=== PATIENT | female | born 1960 | race Caucasian/White ===

== ENCOUNTER 2017-08-18 01:11 | Emergency (ER) | payer OTHER ==
[~2017-08-18] VITALS: Ht 149.9 cm; Wt 131.0 kg
[2017-08-18 01:18] VITALS: TEMP 37; Ht 149.9 cm; Wt 131.0 kg
[2017-08-18] MEDS ORDERED: PRLSR20 PO (01:23)
[2017-08-18] MEDS ORDERED: OXYM0.0592 (01:25)
[2017-08-18] MEDS ORDERED: CETI10TA84 PO (01:25)
[2017-08-18] MEDS ORDERED: ASPI81TA28 PO (01:26)
[2017-08-18] MEDS ORDERED: CHOL1000 PO (01:26)
[2017-08-18] MEDS ORDERED: SERT-234 PO (01:27)
[2017-08-18] MEDS ORDERED: MoRPHine SULFATE 10 MG/ML CARP/VIAL IV STA (01:34)
[2017-08-18 01:51] LABS: BASO % 0.2 %; BASO ABS # 0.02 K/uL (0-0.2); EOS % 2.4 %; EOS ABS # 0.23 K/uL (0-0.5); HEMATOCRIT 42.7 % (37-47); HEMOGLOBIN 14.1 g/dL (12.0-16.0); IG# 0.01 K/uL (0.00-0.02); LYMPH % 33.1 %; LYMPH ABS # 3.23 K/uL (1.2-3.4); MEAN CELL VOLUME 88.2 fL (80-100); MEAN CORPUSCULAR HEMOGLOBIN 29.1 pg (25-34); MEAN PLATELET VOLUME 9.2 fL (7.4-10.4); MONO % 4.8 %; MONO ABS # 0.47 K/uL (0.11-0.59); NEUT % 59.4 %; NEUT ABS # 5.81 K/uL (1.4-6.5); PLATELET COUNT 326 K/uL (130-400); RED CELL DISTRIBUTION WIDTH CV 13.7 % (11.5-14.5); RED CELL DISTRIBUTION WIDTH SD 44.3 fL (36.4-46.3); WHITE BLOOD COUNT 9.77 K/uL (4.8-10.8)
[2017-08-18 01:58] LABS: ALBUMIN 3.4 gm/dl (3.4-5.0); ALT/SGPT 17 U/L (12-78); AST/SGOT 11 U/L (15-37); BLOOD UREA NITROGEN 16 mg/dl (7-18); CALCIUM 9.1 mg/dl (8.5-10.1); CARBON DIOXIDE 30 mmol/L (21-32); CREATININE 0.74 mg/dl (0.60-1.20); GLUCOSE 144 mg/dl (70-99); LIPASE 100 U/L (73-393); POTASSIUM 3.8 mmol/L (3.5-5.1); SODIUM 141 mmol/L (136-145)
[2017-08-18 02:03] LABS: ALKALINE PHOSPHATASE 115 U/L (45-117); TOTAL PROTEIN 7.2 gm/dl (6.4-8.2)
--- NOTE | 2017-08-18 02:52 | EMERGENCY ROOM VISIT NOTE ---
History First contact with patient: :20 Chief Complaint: ABDOMINAL PAIN Stated Complaint: ABD PAIN Nursing Triage Summary: patient c/o sudden onset RLQ pain tonight after coughing while out to eat at dinner. patient states pain worsens with movement. patient states she feels bloated . hx of celiac disease. given 4mg zofran and 5mg morphine IM by EMS prior to arrival. History of Present Illness The patient is a 57 year old female who presents to the Emergency Room with complaints of right-sided abdominal pain. The patient reports that she ate gluten-free pizza for dinner, and while she was at the restaurant she coughed and developed sudden onset of right-sided abdominal pain. She reports that she is more bloated than usual. She has had severe pain in the right upper abdomen with radiation into the back. The pain is worse with coughing. She has difficulty walking and standing due to the pain. She was able to fall asleep for a few hours, but states that she woke up with more severe pain. She reports there was associated nausea and presyncopal symptoms. She states her pain was initially 10/10, but it has now improved to an 8-9/10 after receiving morphine en route. She reports history of hysterectomy and breast reduction surgery. She has had no associated urinary symptoms, changes in bowel movements or vomiting. She denies chest pain or shortness of breath. Review of Systems A complete 10 point review of systems was reviewed with the patient with pertinent positives and negatives as per history of present illness. All else were negative. Past Medical/Surgical History Medical Problems: (1) Celiac disease (2) Pre-diabetes Surgical Problems: (1) H/O bilateral breast reduction surgery (2) History of hysterectomy Social History Smoking Status: Never Smoker Occupation Status: employed Current/Historical Medications Scheduled Aspirin (Aspirin Ec), 81 MG PO DAILY Cetirizine (Zyrtec), 10 MG PO DAILY Cholecalciferol (Vitamin D3), Unknown Dose PO DAILY Omeprazole (Prilosec), 20 MG PO DAILY Oxymetazoline Hcl (Nasal [place]), 1 SPRAY NA DAILY Sertraline (Zoloft), 100 MG PO DAILY Scheduled PRN Hydrocodone W/ Homatropine (Hycodan 5/1.5MG 5 Ml), 5-10 ML PO Q4H PRN for Cough Physical Exam Vital Signs Date Time Temp Pulse Resp B/P (MAP) Pulse Ox O2 Delivery O2 Flow Rate FiO2 08/18/17 06:46 92 20 124/78 98 08/18/17 04:53 66 18 126/72 96 Room Air 08/18/17 02:59 70 20 119/85 91 Room Air 08/18/17 01:18 37.0 71 18 150/91 97 Room Air Physical Exam VITALS: Vitals are noted on the nurse's note and reviewed by myself. Vital signs stable. GENERAL: This is a 57-year-old female, in no acute distress, nondiaphoretic, well-developed well-nourished. SKIN: The skin was without rashes. HEAD: Normocephalic atraumatic. EARS: External auditory canals clear, tympanic membranes pearly marcus without erythema or effusion bilaterally. EYES: Pupils equal round and reactive to light and accommodation. MOUTH: Mucous membranes moist. Tonsils are not enlarged. Pharynx without erythema or exudate. NECK: Supple without nuchal rigidity. No lymphadenopathy. HEART: Regular rate and rhythm without murmurs gallops or rubs. LUNGS: Clear to auscultation bilaterally without wheezes, rales or rhonchi. No retractions or accessory muscle use. ABDOMEN: Positive bowel sounds x 4. Soft, obese abdomen with tenderness in the right flank/right upper quadrant. No guarding or rebound tenderness. NEURO: Patient was alert and oriented to person place and time. Medical Decision & Procedures ER Provider Diagnostic Interpretation: CT ABDOMEN & PELVIS WITHOUT CONTRAST: Noncontrast study. No renal calculi. No hydronephrosis. No free fluid. Bowel is normal in caliber. The appendix is normal in appearance. Diverticulosis without evidence of diverticulitis. Solid organs are otherwise unremarkable on a non-infused exam. Small umbilical hernia containing fat. Absent uterus. US RUQ: Correlated with the earlier CT exam. Technically limited study due to body habitus. No gallstones. No wall thickening or pericholecystic fluid. Normal caliber common duct. Hepatomegaly with fatty infiltration. 2.21.21.8 cm focal echogenicity in the constance hepatis may represent state of increased fat deposition. Differential consideration is small hemangioma. Remainder unremarkable. Radiologist: Edilma Ramírez MD CHEST W/ RIGHT RIB DETAIL: No rib fractures. No acute cardiopulmonary disease. Laboratory Results 08/18/17 01:20 Red Blood Count 4.84, Mean Corpuscular Volume 88.2, Mean Corpuscular Hemoglobin 29.1, Mean Corpuscular Hemoglobin Concent 33.0, Mean Platelet Volume 9.2, Neutrophils (%) (Auto) 59.4, Lymphocytes (%) (Auto) 33.1, Monocytes (%) (Auto) 4.8, Eosinophils (%) (Auto) 2.4, Basophils (%) (Auto) 0.2, Neutrophils # (Auto) 5.81, Lymphocytes # (Auto) 3.23, Monocytes # (Auto) 0.47, Eosinophils # (Auto) 0.23, Basophils # (Auto) 0.02 08/18/17 01:20 Test 08/18/17 01:20 08/18/17 02:40 08/18/17 05:53 White Blood Count 9.77 K/uL (4.8-10.8) Red Blood Count 4.84 M/uL (4.2-5.4) Hemoglobin 14.1 g/dL (12.0-16.0) Hematocrit 42.7 % (37-47) Mean Corpuscular Volume 88.2 fL (80-100) Mean Corpuscular Hemoglobin 29.1 pg (25-34) Mean Corpuscular Hemoglobin Concent 33.0 g/dl (32-36) Platelet Count 326 K/uL (130-400) Mean Platelet Volume 9.2 fL (7.4-10.4) Neutrophils (%) (Auto) 59.4 % Lymphocytes (%) (Auto) 33.1 % Monocytes (%) (Auto) 4.8 % Eosinophils (%) (Auto) 2.4 % Basophils (%) (Auto) 0.2 % Neutrophils # (Auto) 5.81 K/uL (1.4-6.5) Lymphocytes # (Auto) 3.23 K/uL (1.2-3.4) Monocytes # (Auto) 0.47 K/uL (0.11-0.59) Eosinophils # (Auto) 0.23 K/uL (0-0.5) Basophils # (Auto) 0.02 K/uL (0-0.2) RDW Standard Deviation 44.3 fL (36.4-46.3) RDW Coefficient of Variation 13.7 % (11.5-14.5) Immature Granulocyte % (Auto) 0.1 % Immature Granulocyte # (Auto) 0.01 K/uL (0.00-0.02) Anion Gap 7.0 mmol/L (3-11) Est Creatinine Clear Calc Drug Dose 103.7 ml/min Estimated GFR () 104.2 Estimated GFR (Non- 89.9 BUN/Creatinine Ratio 22.0 (10-20) Calcium Level 9.1 mg/dl (8.5-10.1) Total Bilirubin 0.2 mg/dl (0.2-1) Aspartate Amino Transf (AST/SGOT) 11 U/L (15-37) Alanine Aminotransferase (ALT/SGPT) 17 U/L (12-78) Alkaline Phosphatase 115 U/L (45-117) Troponin I < 0.015 ng/ml (0-0.045) Total Protein 7.2 gm/dl (6.4-8.2) Albumin 3.4 gm/dl (3.4-5.0) Globulin 3.8 gm/dl (2.5-4.0) Albumin/Globulin Ratio 0.9 (0.9-2) Lipase 100 U/L (73-393) Urine Color YELLOW Urine Appearance CLEAR (CLEAR) Urine pH 5.0 (4.5-7.5) Urine Specific [place] 1.022 (1.000-1.030) Urine Protein NEG (NEG) Urine Glucose (UA) NEG (NEG) Urine Ketones NEG (NEG) Urine Occult Blood NEG (NEG) Urine Nitrite NEG (NEG) Urine Bilirubin NEG (NEG) Urine Urobilinogen NEG (NEG) Urine Leukocyte Esterase NEG (NEG) D-Dimer < 190 ug/L FEU (0-500) Medications Administered Medications (Trade) Dose Ordered Sig/Nicholas Route Start Time Stop Time Status Last Admin Dose Admin Morphine Sulfate (MoRPHine SULFATE INJ) 8 mg NOW STAT IV 08/18/17 01:34 08/18/17 01:36 DC 08/18/17 01:46 8 MG Lidocaine HCl (Viscous Lidocaine 2% Soln) 20 ml STK-MED ONCE .ROUTE 08/18/17 05:30 08/18/17 05:31 DC 08/18/17 05:34 20 ML Al Hydroxide/Mg Hydroxide (Maalox Susp) 30 ml STK-MED ONCE .ROUTE 08/18/17 05:31 08/18/17 05:32 DC 08/18/17 05:34 30 ML ECG Rate (beats per minute): 69 Rhythm: normal sinus Findings: no acute ischemic change, no ectopy, other (incomplete RBBB) Comparison ECG Date: no prior available ED Course The patient was evaluated as above. Labs were drawn and IV access was obtained. Patient was medicated with 8 mg morphine IV. Patient was reevaluated and was complaining of pain. A GI cocktail was ordered. Discharge instructions were reviewed with the patient. The patient verbalized understanding of my assessment and treatment plan and was discharged home in good condition. Medical Decision Differential diagnosis includes cholecystitis, pancreatitis, pulmonary embolism , pneumonia, rib fracture, rib contusion, bowel obstruction, pyelonephritis, among others. The patient is a 57-year-old female who presents today complaining of right upper quadrant pain. Labs revealed no leukocytosis, anemia or electrolyte abnormalities. Glucose slightly elevated at 144. Urinalysis was not suggestive of infection. Lipase was not elevated. LFTs within normal limits. EKG was interpreted by myself and shows a normal sinus rhythm without ischemic changes. Troponin and d-dimer within normal limits. CT of the abdomen and pelvis without contrast was performed and showed no evidence of kidney stone or other acute pathology. Ultrasound of the gallbladder was obtained and shows no acute findings. On reevaluation, the patient was questioning whether she may have a rib fracture. There has been no evidence of trauma in this seems very unlikely. I did order a chest x-ray with right rib detail which is without fractures. Patient may have an intercostal sprain. Workup today has been completely negative. She was advised that she will need follow-up with her primary care provider for further evaluation. She was given a home pack of Hycodan cough syrup, as her symptoms seem to worsen when she is coughing. The patient's case was reviewed with Dr. De Anda, ED attending physician, who agreed with my assessment and treatment plan. Based on the patient's presentation and work up, I feel the patient is stable for outpatient treatment. The patient was educated to return to the emergency department for any worsening of their current condition or new/concerning symptoms. She will follow up with her PCP. Medication Reconcilliation Current Medication List: was personally reviewed by me Blood Pressure Screening Patient's blood pressure: Normal blood pressure Impression Primary Impression: Right upper quadrant abdominal pain Departure Information Dispostion Home / Self-Care Condition GOOD Prescriptions Hydrocodone W/ Homatropine (HYCODAN 5/1.5MG 5 ML) 1 Syp Syp 5-10 ML PO Q4H Y for Cough, #60 ML Prov: Aide Santana ., BRYON 08/18/17 Referrals No Doctor, Assigned (PCP) Patient Instructions My [facility] Additional Instructions You have been prescribed Hycodan cough syrup to be used for pain control. This is a narcotic medication. You cannot drive or consume alcohol while on this medicine. This medicine should only be used for pain that cannot be controlled with [id number] pain medicines. For pain control, you can use the following [id number] medicines (if >12 yo): - Regular strength (325mg/tab) Tylenol (acetaminophen) 2 tabs every 4-6 hours as needed. Do not exceed 12 tablets in a 24 hour period. Avoid taking more than 4 grams (4000 mg) of Tylenol per day. This includes any other sources of acetaminophen you may take on a regular basis. - Regular strength (200 mg/tab) Advil (ibuprofen) 1-2 tabs every 4-6 hours as needed. Do not exceed a dose of 3200 mg per day. Follow-up with your primary care provider this week. Return to the emergency department with worsening abdominal pain, vomiting, fevers, or any other new/concerning symptoms.
[2017-08-18] MEDS ORDERED: GI COCKTAIL PO STA (05:04)
[2017-08-18] MEDS ORDERED: LIDOCAINE HCL 2% VISC SOLN 20 ML UDC ONE (05:30)
[2017-08-18] MEDS ORDERED: ALUMINUM/MAGNESIUM SUSP 30 ML UDC ONE (05:31)
--- NOTE | 2017-08-18 06:29 | DIAGNOSTIC IMAGING REPORT ---
RIBS UNILATERAL WITH PA CHEST CLINICAL HISTORY: right chest pain pain COMPARISON STUDY: None FINDINGS: Negative right ribs. Cortical margins are intact. Mild cardiomegaly. No evidence of pneumothorax. Platelike atelectasis both lung bases. IMPRESSION: Negative right ribs. Platelike atelectasis both lung bases. The above report was generated using voice recognition software. It may contain grammatical, syntax or spelling errors. Electronically signed by: Wesly Martinez M.D. 08/18/2017 6:28 AM Dictated Date/Time: 08/18/2017 6:27 AM
[2017-08-18] MEDS ORDERED: HYDR5SYP11 PO (06:38)
[2017-08-18 06:46] VITALS: BP 124/78; PULSE 92; O2SAT 98
--- NOTE | 2017-08-18 07:02 | DIAGNOSTIC IMAGING REPORT ---
ABD/PELVIS NO IV OR ORAL CONT CT DOSE: 1169.23 mGycm HISTORY: Flank pain right flank/RUQ pain TECHNIQUE: Multiaxial CT images of the abdomen and pelvis were performed without contrast. A dose lowering technique was utilized adhering to the principles of ALARA. COMPARISON STUDY: None. FINDINGS: The lung bases are clear. The unenhanced liver, spleen, gallbladder, pancreas, kidneys, and adrenal glands are within normal limits. No bowel wall thickening or obstruction. The pelvic organs are unremarkable. No suspicious lytic or blastic osseous lesions. Small fat-containing periumbilical hernia. Normal appendix. Nonobstructive bowel pattern. IMPRESSION: No significant abnormality identified within the abdomen or pelvis. The above report was generated using voice recognition software. It may contain grammatical, syntax or spelling errors. Electronically signed by: Wesly Martinez M.D. 08/18/2017 7:01 AM Dictated Date/Time: 08/18/2017 6:59 AM
--- NOTE | 2017-08-18 07:13 | DIAGNOSTIC IMAGING REPORT ---
GALLBLADDER-ABD LIMITED CLINICAL HISTORY: 57 years-old Female presenting with RUQ pain, nausea, pain with coughing. TECHNIQUE: Real-time grayscale and limited color Doppler ultrasound imaging of the abdomen limited to the right upper quadrant was performed. COMPARISON: CT performed earlier the same day. FINDINGS: Pancreas: Visualized portions of the pancreatic head and body normal. Liver: Moderately hyperechogenic parenchyma with partial obscuration of the right hemidiaphragm, likely indicating moderate steatosis. The liver measures 20.9 cm in maximal sagittal dimension. Focal echogenicity in the liver hilum within the liver parenchyma, which likely correlates with the 1.[address] This is indeterminate but most likely represents a hemangioma or more focal pronounced fatty deposition. Main portal vein patent with normal directional flow. Biliary: No intrahepatic biliary ductal dilatation. Common bile duct measures up to 4 mm in diameter. Gallbladder: No evidence of gallstones, gallbladder wall thickening, gallbladder distention, or pericholecystic fluid or inflammatory change. Unable to assess sonographic Niño's sign. Right kidney: Normal in appearance. No hydronephrosis. Ascites: None. IMPRESSION: 1. Hepatic steatosis. Correlate with liver function tests to exclude steatohepatitis as a cause for abdominal pain. 2. Suspected small hemangioma versus more focal fatty deposition centrally in the liver. 3. No cholelithiasis or biliary ductal dilatation. Electronically signed by: Ever Yost M.D. 08/18/2017 7:11 AM Dictated Date/Time: 08/18/2017 7:08 AM
== END 2017-08-18 06:47 | disposition home or self-care (01) ==
LOC: EDBD 01:11 → C.EDA 01:13
DX: R10.11 Right upper quadrant pain (principal); R05 Cough; K90.0 Celiac disease; R73.03 Prediabetes; Z79.82 Long term (current) use of aspirin